=== PATIENT | male | born 1990 | race African-American/Black ===

== ENCOUNTER 2017-11-06 22:50 | Emergency (ER) | payer SELFPAY ==
[2017-11-06] MEDS ORDERED: (BACK ORDERED; DO NOT ORDER) DIAZEPAM 5 MG/ML DISP.SYRIN IM ONE (23:19)
[2017-11-06] MEDS ORDERED: KETOROLAC TROMETHAMINE 60 MG/2 ML VIAL IM ONE (23:19)
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
[2017-11-07 00:49] VITALS: BP 118/80
== END 2017-11-07 00:45 | disposition home or self-care (01) ==
LOC: ED 22:50
DX: S49.82XA Other specified injuries of left shoulder and upper arm, initial encounter (principal); Y93.75 Activity, martial arts
CPT/HCPCS: 72040; 73030; 96372; 99283; J1885; J3360